=== PATIENT | female | born 1995 ===

== ENCOUNTER 2022-10-08 11:44 | Emergency (ER) | payer BC ==
[2022-10-08] MEDS ORDERED: Tetracaine HCl/PF 0.5% 4 ML Bottle EYELF ONE (11:59)
[2022-10-08] MEDS ORDERED: Fluorescein 1 MG Ophth Strip EYELF ONE (11:59)
[2022-10-08] MEDS ORDERED: Gentamicin 0.3% Ophth Soln 5 ML Bottle EYELF ONE (12:25)
== END 2022-10-08 12:37 | disposition home or self-care (01) ==
LOC: DL.ED 11:44
DX: S05.02XA Injury of conjunctiva and corneal abrasion without foreign body, left eye, initial encounter (principal); Z88.1 Allergy status to other antibiotic agents
CPT/HCPCS: 99282; 99283; A9270-GY; J3490